=== PATIENT | male | born 1985 | race Caucasian/White ===

== ENCOUNTER → 2018-11-02 | Outpatient (CLI) | payer OTHER | LOC: BHSO 13:43 | DX: F33.42 Major depressive disorder, recurrent, in full remission (principal) ==

== ENCOUNTER → 2018-11-19 | Outpatient (CLI) | payer OTHER | LOC: BHSO 16:01 | DX: F43.23 Adjustment disorder with mixed anxiety and depressed mood (principal) ==

== ENCOUNTER → 2018-12-10 | Outpatient (CLI) | payer OTHER | LOC: BHSO 08:58 | DX: Z76.89 Persons encountering health services in other specified circumstances (principal) ==

== ENCOUNTER → 2018-12-21 | Outpatient (CLI) | payer OTHER | LOC: BHSO 08:59 | DX: F43.22 Adjustment disorder with anxiety (principal) ==

== ENCOUNTER → 2019-01-04 | Outpatient (CLI) | payer OTHER | LOC: BHSO 15:06 | DX: F43.22 Adjustment disorder with anxiety (principal) ==

== ENCOUNTER 2019-07-03 23:13 | Emergency (ER) | payer OTHER ==
[~2019-07-03] VITALS: Ht 188 cm; Wt 159.1 kg
[2019-07-03 23:19] VITALS: TEMP 98.1
[2019-07-03] MEDS ORDERED: TOPROL XL100 MG PO (23:24)
[2019-07-03] MEDS ORDERED: KLONOPIN 0.5MG0.5 MG PO (23:25)
[2019-07-03] MEDS ORDERED: BUSPAR DIVIDOSE15 MG PO (23:25)
[2019-07-04 00:06] LABS: ANION GAP 8 mmol/L (7-16); BLOOD UREA NITROGEN 18 mg/dL (9-20); CALCIUM 8.5 mg/dL (8.4-10.2); CARBON DIOXIDE 26 mmol/L (22-30); CHLORIDE 106 mmol/L (98-107); CREATININE, serum 0.76 (0.66-1.25); GLUCOSE 126 mg/dL (74-106); SODIUM 140 mmol/L (137-145)
[2019-07-04 00:13] LABS: BASO % 0.3 % (0.0-2.0); EOS # 0.2 (0.0-0.7); EOS % 2.2 % (0-4.0); GRAN # 4.6 (1.4-6.5); HEMATOCRIT 43.8 % (42.0-52.0); HEMOGLOBIN 14.1 g/dl (13.5-18.0); LYMPH # 3.1 (1.2-3.4); LYMPH % 35.2 % (20.0-51.0); MEAN CELL VOLUME 91 fl (80.0-100.0); MEAN CORPUSCULAR HEMOGLOBIN 29 pg (27.0-31.0); MEAN CORPUSCULAR HGB CONC 32 g/dl (33.0-37.0); MEAN PLATELET VOLUME 10.7 fl (7.4-10.4); MONO # 0.8 (0.1-0.6); PLATELET COUNT 211 K/mm3 (130-400); RED BLOOD COUNT 4.79 M/mm3 (4.20-5.60); REDCELL DISTRIBUTION WIDTH-CV 12.6 % (11.5-14.5)
[2019-07-04 00:18] LABS: TROPONIN-I < 0.012 ng/mL (0.000-0.035)
[2019-07-04 00:46] VITALS: BP 117/77
[2019-07-04 00:53] VITALS: PULSE 69
== END 2019-07-04 00:52 | disposition home or self-care (01) ==
LOC: COL.ER 23:13
PROVIDERS: Physician Assistant
DX: F41.9 Anxiety disorder, unspecified (principal); F17.210 Nicotine dependence, cigarettes, uncomplicated

== ENCOUNTER → 2019-07-08 | Outpatient (CLI) | payer OTHER ==
[~2019-07-08] MED LIST: BUSPAR DIVIDOSE15 MG PO; KLONOPIN 0.5MG0.5 MG PO; TOPROL XL100 MG PO
== END ==
LOC: BHSO 09:56
DX: F41.0 Panic disorder [episodic paroxysmal anxiety] (principal)

== ENCOUNTER → 2019-08-05 | Outpatient (CLI) | payer OTHER | LOC: BHSO 10:01 | DX: F41.1 Generalized anxiety disorder (principal) ==

== ENCOUNTER → 2019-10-09 | Outpatient (CLI) | payer OTHER | LOC: BHSO 10:53 | DX: F41.0 Panic disorder [episodic paroxysmal anxiety] (principal) ==